=== PATIENT | male | born 1940 | race African-American/Black ===

== ENCOUNTER 2016-09-18 06:35 | Observation (INO) ==
[2016-09-18] MEDS ORDERED: ALBUTEROL NEB SOLN 5 MG/ML 20 ML/BOTTLE CONT NEB STA (06:54)
[2016-09-18] MEDS ORDERED: methylPREDNISolone SOD SUC 125 MG/2 ML VIAL IV STA (06:54)
--- NOTE | 2016-09-18 06:57 | Emergency Department Note ---
IJulio Meredith, am scribing for, and in the presence of, Mariano Kimbrough MD 06: 52. IKaylan James D, MD, personally performed the services described in this documentation, ascribed by Augustina Kim in my presence, and it is both accurate and complete 657 . Arrival - Arrival Chief Complaint: Upper Respiratory Stated Complaint: SOB,asthma ED Nursing Triage Note: C/O Asthma attack. Onset a few days ago. This is his 3rd visit in 3 days- last visit was less than 12 hours ago. Pt states that he was better when he left, but now is worse than before. Pt has hx of asthma and has been taking his medications as prescribed without relief. Pt feels like he needs to be admitted. +audible wheezing heard in triage Mode of Arrival: Ambulatory Limitations: No Limitations Source: Patient, Old Records Reviewed, RN Notes Reviewed Time Seen by Provider: 09/18/16 06:50 - History of Present Illness HPI Narrative: Pt is a 76 y/o black male reporting to the ED with c/o asthma exacerbation which onset a few days ago. This is his 3rd visit in the past 3 days. Pt states he felt better when he was discharged less than 12 hours ago but is now worse. He feels that he needs to be admitted. Pt has a history of HTN, HLD, asthma, bronchitis, COPD, and osteoporosis. He is a former smoker. Onset (ago): day(s) Allergies/Adverse Reactions: Allergies Allergy/AdvReac Type Severity Reaction Status Date / Time lisinopril Allergy Intermediate Swelling Verified 08/16/16 06:40 of Lip/Tongue/Throat Home Medications: Home Medications Medication Instructions Recorded Confirmed Type HYDROcodone/ACETAMIN 5-325 [[place] 1 tablet PO Q6H 04/25/16 09/18/16 History 5-325] Ibuprofen Tab [Motrin Tab] 600 mg PO Q8H 04/25/16 09/18/16 History Losartan/Hydrochlorothiazide 1 each PO DAILY 04/25/16 09/18/16 History [Losartan-Hctz 50-12.5 mg Tab] Omeprazole [Prilosec] 20 mg PO DAILY 04/25/16 09/18/16 History Pravastatin Sodium 20 mg PO DAILY 04/25/16 09/18/16 History Tamsulosin [Flomax] 0.4 mg PO DAILY 04/25/16 09/18/16 History predniSONE TAB [PredniSONE] 5 mg PO DAILY 04/25/16 09/18/16 History Albuterol Neb [Proventil Neb] 2.5 mg RESP TX Q6H PRN 05/09/16 09/18/16 History Albuterol Sulfate [Ventolin HFA] 2 puffs INH Q4H PRN 05/09/16 09/18/16 History Naproxen EC [EC Naprosyn] 500 mg PO BID PRN #20 tablet 07/20/16 09/18/16 Rx Cyclobenzaprine [Flexeril] 10 mg PO TID #30 tablet 08/16/16 09/18/16 Rx Albuterol Inhaler [Proventil 2 puff INH Q4H PRN #1 inhaler 09/16/16 09/18/16 Rx Inhaler] Montelukast Tab [Singulair Tab] 10 mg PO DAILY #30 tablet 09/18/16 09/18/16 Rx predniSONE TAB [PredniSONE] 40 mg PO DAILY 4 Days 09/18/16 09/18/16 Rx Review of System - Review of System 12 point system: reviewed and no additional remarkable complaints except as stated - Review of System Respiratory: Present: as per HPI, respiratory distress, wheezing Medical,Surgical,& Family Hx - Medical History Cardio: History of: Hypertension Endocrine: History of: Dyslipidemia No history of: Diabetes Mellitus (IDDM), Diabetes Mellitus (NIDDM) Respiratory: History of: Asthma, Bronchitis, COPD Gastrointestinal: No history of: Gastrointestinal Bleed, GI Problems Musculoskeletal: History of: Osteoporosis, Musculoskeletal Problems - Surgical History Orthopedic Surgeries: Surgical HX of;: Orthopedic Surgery, Total Hip Replacement (lt.hip replacement), Total Knee Replacement (bilateral knee replacement) - Family History Family History: Reports;: Family Cancer - Social History Smoking Status: Former smoker Frequency of Alcohol Use: None Type of Drug Use: None Exam Physical Examination: GENERAL: This is a well-nourished, well-developed black male in no apparent distress. VITAL SIGNS: Temperature: 97.3, Pulse: 110, Respirations: 26, Blood pressure: 97 /75, O2 Saturation: 96 HEENT: Head is normocephalic and atraumatic. Pupils are equally round and reactive to light. Extraocular movement are intact. Oropharynx is benign with moist mucous membranes. NECK: Neck is soft and supple without tenderness. There are no masses. There is no lymphadenopathy. LUNGS: Expiratory wheeze with prolongation of the expiratory phase. Chest rises symmetrically. There is no chest wall tenderness. CV: Heart is regular rate and rhythm without murmurs, rubs, or gallops. ABDOMEN: Abdomen is soft, non-tender to palpation. There are no abnormal masses palpated. There is no organomegaly. Bowel sounds are present and active. SKIN: Skin is warm and dry. No rash. EXTREMITIES: Patient has full range of motion without tenderness. There is no pedal edema. NEUROLOGIC: Awake, alert, and oriented x4. Cranial nerves II through XII are grossly intact. There are no motorsensory deficits. PSYCHIATRIC: Normal affect. Normal mood. Vital Signs: Vital Signs Temperature 97.5 F L 09/18/16 06:40 Pulse Rate 109 H 09/18/16 06:50 Respiratory Rate 20 09/18/16 06:50 Blood Pressure 175/119 09/18/16 06:50 O2 Sat by Pulse Oximetry 100 09/18/16 06:50 Course - Consultations Consultation #1: Discussed with hospitalist. Patient will be admitted to their service. Time: 06:56 Results - Labs Lab Results: I have reviewed the patients labs Labs: Laboratory Tests 09/18/16 09/18/16 00:25 00:25 Troponin I < 0.015 B-Natriuretic Peptide 13 - Diagnostic Findings Procedure: Chest x-ray: image reviewed by me (Chest x-ray reviewed from last night's visit. Patient has hyperinflation bilaterally without any evidence of infiltrates.) Disposition Clinical Impression: Acute asthma exacerbation, Essential hypertension Case discussed with: patient Disposition: Still a Patient Condition: Stable Additional Instructions: Discontinue ibuprofen and Naprosyn. Time of Disposition: 06:56
[2016-09-18] MEDS ORDERED: methylPREDNISolone SOD SUC 125 MG/2 ML VIAL ONE (06:58)
[2016-09-18] MEDS ORDERED: guaiFENesin/DM ER 600-30 MG TABLET PO PRN (07:11)
[2016-09-18] MEDS ORDERED: DOCUSATE SODIUM 100 MG CAPSULE PO PRN (07:11)
[2016-09-18] MEDS ORDERED: ACETAMINOPHEN 325 MG TABLET PO PRN (07:11)
[2016-09-18] MEDS ORDERED: ONDANSETRON 4 MG/2 ML VIAL IV PRN (07:11)
[2016-09-18] MEDS ORDERED: MORPHINE 2 MG/1 ML SYRINGE IV PRN (07:11)
[2016-09-18] MEDS ORDERED: ALBUTEROL/IPRATROPIUM 3 ML NEB RESP TX PRN (07:11)
--- NOTE | 2016-09-18 07:56 | Hospitalist History & Physical ---
Assessment and Plan - Time spent with patient Time spent with patient: Greater than 30 minutes (due to assessment, plan and documentation.) (1) Acute asthma exacerbation Status: Acute Assessment and plan: admit obs levaquin for possible underlying infectious process- wbc slightly elevated, yellow sputum solumedrol 40 mg IV BID duonebs q6h prn supplemental o2 cxr in am Current Visit: Yes (2) Hyperlipidemia Status: Acute Assessment and plan: continue home meds Current Visit: Yes (3) Acute respiratory distress Status: Acute Assessment and plan: O2/2L hour long neb Current Visit: Yes (4) Essential hypertension Status: Acute Assessment and plan: continue home meds Current Visit: Yes History of Present Illness Chief complaint: sob History of present illness: Mr. Barcenas is a 76 year old male who presented to the ED last night with acute asthma exacerbation. He was treated with steroids and nebs and improved and was discharged home. He states that this morning when he woke up that he felt very tight and short of breath and returned to the ER. He is currently on a 1 hour long nebulized treatment and has received solumedrol. Onset of initial symptoms was Wednesday. His cough is productive of yellow sputum. Last from 0 this morning showed WBC 13.1 Creat 1.6 (appears at baseline). BNP normal. CXR showed " no acute cardiopulmonary process". He has a PMH significant for HTN, HLD, COPD, asthma and osteoportosis. He no longer smokes. He does mention that he was stung on his neck by "something" a few days ago, and that since then he has had pain down his arm. He also mentions that he saw his Dr. Parada and was told it was probably nerve pain. He denies any past surgical history to me. He will be admitted to the floor and treated for acute asthma/copd exacerbtaion with nebs, steroids, levaquin, and supplemental O2. He lives at home with his and typically functions independently. Further plan and addendum to follow by Dr. Katharine Ashley. Home Medications Medication Instructions Recorded Confirmed Type HYDROcodone/ACETAMIN 5-325 [[place] 1 tablet PO Q6H 04/25/16 09/18/16 History 5-325] Ibuprofen Tab [Motrin Tab] 600 mg PO Q8H 04/25/16 09/18/16 History Losartan/Hydrochlorothiazide 1 each PO DAILY 04/25/16 09/18/16 History [Losartan-Hctz 50-12.5 mg Tab] Omeprazole [Prilosec] 20 mg PO DAILY 04/25/16 09/18/16 History Pravastatin Sodium 20 mg PO DAILY 04/25/16 09/18/16 History Tamsulosin [Flomax] 0.4 mg PO DAILY 04/25/16 09/18/16 History predniSONE TAB [PredniSONE] 5 mg PO DAILY 04/25/16 09/18/16 History Albuterol Neb [Proventil Neb] 2.5 mg RESP TX Q6H PRN 05/09/16 09/18/16 History Albuterol Sulfate [Ventolin HFA] 2 puffs INH Q4H PRN 05/09/16 09/18/16 History Naproxen EC [EC Naprosyn] 500 mg PO BID PRN #20 tablet 07/20/16 09/18/16 Rx Cyclobenzaprine [Flexeril] 10 mg PO TID #30 tablet 08/16/16 09/18/16 Rx Albuterol Inhaler [Proventil 2 puff INH Q4H PRN #1 inhaler 09/16/16 09/18/16 Rx Inhaler] Montelukast Tab [Singulair Tab] 10 mg PO DAILY #30 tablet 09/18/16 09/18/16 Rx predniSONE TAB [PredniSONE] 40 mg PO DAILY 4 Days 09/18/16 09/18/16 Rx Allergies Allergy/AdvReac Type Severity Reaction Status Date / Time lisinopril Allergy Intermediate Swelling Verified 08/16/16 06:40 of Lip/Tongue/Throat Medical,Surgical,& Family Hx - Medical History Cardio: History of: Hypertension Endocrine: History of: Dyslipidemia No history of: Diabetes Mellitus (IDDM), Diabetes Mellitus (NIDDM) Respiratory: History of: Asthma, Bronchitis, COPD Gastrointestinal: No history of: Gastrointestinal Bleed, GI Problems Musculoskeletal: History of: Osteoporosis, Musculoskeletal Problems - Surgical History Orthopedic Surgeries: Surgical HX of;: Orthopedic Surgery, Total Hip Replacement (lt.hip replacement), Total Knee Replacement (bilateral knee replacement) - Family History Family History: Reports;: Family Cancer - Social History Smoking Status: Former smoker Frequency of Alcohol Use: None Type of Drug Use: None Marital Status: Lives With:: Spouse Functional capacity: independent ambulation - Constitutional Constitutional: Absent: chills, fatigue, fever(s) - EENT Eyes: Absent: blurry vision, diplopia Ears: Absent: decreased hearing, tinnitus Nose, mouth and throat: Present: neck pain (due to sting a few days ago.). Absent: dysphagia, headache(s) - Cardiovascular Cardiovascular: Present: chest pain at rest, dyspnea, dyspnea on exertion - Respiratory Respiratory: Present: cough, dyspnea, dyspnea on exertion, wheezing, change in phlegm color (yellow sputum.). Absent: hemoptysis - Gastrointestinal Gastrointestinal: Absent: abdominal pain, constipation, diarrhea, melena, nausea , vomiting - Genitourinary Genitourinary: Absent: dysuria, hematuria - Musculoskeletal Musculoskeletal: Absent: back pain, joint swelling - Neurological Neurological: Absent: confusion, dizziness - Psychiatric Psychiatric: Absent: anxiety, confusion, depression - Endocrine Endocrine: Absent: cold intolerance, heat intolerance - Hematologic/Lymphatic Hematologic/Lymphatic: Absent: easy bleeding, easy bruising Exam - Constitutional Vitals: Period Temp Pulse Resp BP Sys/Harman Pulse Ox Last 24 Hr 97.3 F-97.5 F 109-110 20-26 97-175/75-119 96-100 General appearance: normal weight, mild distress - Head Head exam: Present: normal inspection, normocephalic - Eye Eye exam: Present: EOMI. Absent: scleral icterus Pupils: Present: BRIJESH, normal accommodation - ENT ENT exam: Present: normal exam, normal oropharynx - Neck Neck exam: Present: normal inspection. Absent: lymphadenopathy - Respiratory Respiratory exam: Present: accessory muscle use, prolonged expiratory phase, wheezes - Cardiovascular Cardiovascular exam: Present: regular rate and rhythm. Absent: carotid bruit - GI/Abdominal GI/Abdominal exam: Present: normal bowel sounds, soft. Absent: tenderness - Extremities Exam Extremities exam: Present: normal inspection. Absent: edema - Back Exam Back exam: Present: normal inspection. Absent: muscle spasm - Neurological Exam Neurological exam: Present: alert, oriented X3 - Psychiatric Psychiatric exam: Present: normal affect, normal mood - Skin Skin exam: Present: normal color, warm, dry, intact Results - Labs Lab Results: I have reviewed the past 24 hour labs (Labs from 09/17 early AM visit were reviewed.) - Diagnostic Findings Procedure: Chest x-ray: report reviewed by me (no acute cardiopulmonary process noted 09/17/16 )
[2016-09-18] MEDS ORDERED: IBUPROFEN 600 MG TABLET PO SCH (09:02)
[2016-09-18] MEDS ORDERED: NAPROXEN EC 500 MG TABLET PO PRN (09:02)
[2016-09-18] MEDS ORDERED: NON-FORMULARY MEDICATION (Albuterol Inhaler 2 PUFF) INH PRN (09:02)
[2016-09-18] MEDS: PANTOPRAZOLE 40 MG TABLET PO SCH (09:05)
[2016-09-18] MEDS: LEVOFLOXACIN INJ 750 MG in PREMIX 1 EACH IV SCH (09:05)
[2016-09-18] MEDS: ENOXAPARIN 40 MG/0.4 ML SYRINGE SUBCUT SCH (09:05)
[2016-09-18] MEDS: methylPREDNISolone SOD SUC 40 MG/1 ML VIAL IV SCH ×2 (09:06→20:48)
[2016-09-18] MEDS: TAMSULOSIN 0.4 MG CAPSULE PO SCH (09:12)
[2016-09-18] MEDS: LOSARTAN/HCTZ 50-12.5 MG TABLET PO SCH (09:12)
[2016-09-18] MEDS: MONTELUKAST 10 MG TABLET PO SCH (09:12)
[2016-09-18] MEDS: CYCLOBENZAPRINE 10 MG TABLET PO SCH ×3 (09:12→20:48)
[2016-09-18] MEDS ORDERED: ALBUTEROL 2.5 MG/3 ML NEB RESP TX PRN (09:30)
[2016-09-18] MEDS ORDERED: IBUPROFEN 600 MG TABLET PO PRN (14:20)
[2016-09-18] MEDS: PRAVASTATIN 20 MG TABLET PO SCH (20:48)
[2016-09-19 05:35] LABS: Basophils % 0.1 % (0.0-0.8); Hematocrit 35.9 VOL% (42.0-52.0); Hemoglobin 11.3 GM/DL (14.0-18.0); Immature Granulocytes % 1.2 %; Immature Granulocytes Absolute 0.14 #; Lymphocytes # 1.3 10*3/uL (1.4-4.0); Lymphocytes % 10.9 % (21.2-54.2); Mean Corpuscular HGB Conc 31.5 GM/DL (32-36); Mean Corpuscular Hemoglobin 29 PG (27-34); Mean Corpuscular Volume 90.4 FL (87-102); Mean Platelet Volume 8.8 FL (9.6-12.0); Monocytes # 0.6 10*3/uL (0.11-0.8); NRBC # 0.02 10*3/uL; Neutrophils % 82.8 % (38.7-73.9); Platelet Count 346 T/CUMM (130-400); Red Blood Count 3.97 MC/CUMM (3.8-5.5); Red Cell Distribution Width 13.1 % (9.3-17.3); White Blood Count 12.1 T/CUMM (4-12)
[2016-09-19 05:57] LABS: Calcium 8.9 MG/DL (8.5-10.1); Potassium 4.8 MMOL/L (3.5-5.1)
--- NOTE | 2016-09-19 09:17 | Hospitalist Progress Note ---
Assessment and Plan (1) Asthma exacerbation Status: Acute Assessment and plan: Patient is some better today he wants to stay another day we'll continue the current medicines. Overall improving Current Visit: No Hospitalist: Subjective Interval history: Patient without complaints is breathing a little bit better Exam - Constitutional Vitals: Period Temp Pulse Resp BP Sys/Harman Pulse Ox Last 24 Hr 97.6 F-98.2 F 24-109 18-101 103-128/45-64 95-100 Exam: Constitutional: General appearance is normal Eyes: Pupils equal round react to light and accommodation conjunctiva and lids are normal Neck: supple without masses Respiratory: Respiratory effort is normal. Lungs are clear to auscultation. Resonant to percussion. Cardiac: Regular rate and rhythm without murmur rub or gallop. PMI at the midclavicular line by palpation. Carotid arteries 2+ palpation no bruits GI: Bowel sounds normoactive, no tenderness or rebound tenderness, no organomegaly Extremities: no clubbing cyanosis or edema Results - Labs CBC & BMP: 09/19/16 05:02 09/19/16 05:02
[2016-09-19] MEDS: LEVOFLOXACIN INJ 750 MG in PREMIX 1 EACH IV SCH (09:54)
[2016-09-19] MEDS: ENOXAPARIN 40 MG/0.4 ML SYRINGE SUBCUT SCH (09:54)
[2016-09-19] MEDS: CYCLOBENZAPRINE 10 MG TABLET PO SCH ×3 (09:55→20:47)
[2016-09-19] MEDS: LOSARTAN/HCTZ 50-12.5 MG TABLET PO SCH (09:56)
[2016-09-19] MEDS: MONTELUKAST 10 MG TABLET PO SCH (09:56)
[2016-09-19] MEDS: methylPREDNISolone SOD SUC 40 MG/1 ML VIAL IV SCH ×2 (09:56→20:48)
[2016-09-19] MEDS: PANTOPRAZOLE 40 MG TABLET PO SCH (10:14)
[2016-09-19] MEDS: TAMSULOSIN 0.4 MG CAPSULE PO SCH (10:15)
--- NOTE | 2016-09-19 12:42 | XRay Report ---
History: Shortness of breath Date: 09/19/2016 Study: Chest x-ray PA and lateral Comparison exam: September 17, 2016 The cardiac silhouette is not enlarged. There is no mediastinal mass. There is no pulmonary vascular engorgement. The lungs are generally clear. Shallow breath when compared to the previous study. There are some small calcified granulomata bilaterally. There is no layering pleural effusion. Osseous structures are unchanged. Impression: No acute cardiopulmonary process compared to the previous study. No interval worsening PROCEDURE INTERPRETED AT [facility] DEPARTMENT OF RADIOLOGY Final Report Signed by: Dr. Diamond Perry
[2016-09-19] MEDS: PRAVASTATIN 20 MG TABLET PO SCH (20:47)
[2016-09-20 07:51] VITALS: BP 108/59
--- NOTE | 2016-09-20 08:18 | Discharge Summary ---
Hospital Course - Hospital Course Hospital Course: Patient was admitted to the hospital with an asthma exacerbation, currently not have any complaints or problems is breathing markedly better and wants to go home. We will send him home on when necessary inhaler Symbicort tapering doses of steroids and Spiriva. He will follow-up with his regular doctor on or Wednesday. He tells me that Dr. Mahan Diagnosis - Discharge Diagnosis (1) Asthma exacerbation Status: Acute Discharge Plan - Discharge Data Disposition: Disch To Home/Self Care Condition at Discharge: Stable Discharge Diet: advance to your usual diet Activity: resume usual activities as tolerated Hygiene: no restrictions Weight Bearing at Discharge: full weight bearing Driving: no restrictions - Discharge Medications New Budesonide/Formoterol 160-4.5 [Symbicort 160-4.5] 2 puff INH BID #1 inhaler Acetaminophen Tab [Tylenol Tab] 325 mg PO Q4H PRN #0 tablet PRN Reason: fever, headache/body aches methylPREDNISolone DOSEPAK [Medrol Dosepak] 4 mg PO DIRECTED #1 pack Continue Ibuprofen Tab [Motrin Tab] 600 mg PO Q8H Tamsulosin [Flomax] 0.4 mg PO DAILY Pravastatin Sodium 20 mg PO DAILY Omeprazole [Prilosec] 20 mg PO DAILY Losartan/Hydrochlorothiazide [Losartan-Hctz 50-12.5 mg Tab] 1 each PO DAILY HYDROcodone/ACETAMIN 5-325 [[place] 5-325] 1 tablet PO Q6H Albuterol Neb [Proventil Neb] 2.5 mg RESP TX Q6H PRN PRN Reason: Shortness Of Breath/Wheezing Albuterol Inhaler [Proventil Inhaler] 2 puff INH Q4H PRN #1 inhaler PRN Reason: Shortness Of Breath/Wheezing Cyclobenzaprine [Flexeril] 10 mg PO TID #30 tablet Montelukast Tab [Singulair Tab] 10 mg PO DAILY #30 tablet Discontinued predniSONE TAB [PredniSONE] 5 mg PO DAILY predniSONE TAB [PredniSONE] 40 mg PO DAILY 4 Days No Action Naproxen EC [EC Naprosyn] 500 mg PO BID PRN #20 tablet PRN Reason: pain - Follow Up or Referral - Forms/Instructions Exam - Constitutional Vitals: Period Temp Pulse Resp BP Sys/[place] Pulse Ox Last 24 Hr 97.6 F-98.0 F 80-94 18-89 102-117/56-69 95-100 Exam: Constitutional: General appearance is normal Eyes: Pupils equal round react to light and accommodation conjunctiva and lids are normal Neck: supple without masses Respiratory: Respiratory effort is normal. Lungs are clear to auscultation. Resonant to percussion. Cardiac: Regular rate and rhythm without murmur rub or gallop. PMI at the midclavicular line by palpation. Carotid arteries 2+ palpation no bruits GI: Bowel sounds normoactive, no tenderness or rebound tenderness, no organomegaly Extremities: no clubbing cyanosis or edema Discharge Results Labs on day of discharge: Labs from last 24 hours 09/19/16 20:38 POC Glucose 129 H DS: Provider Date of admission: 09/18/16 07:11 Primary care physician: Medardo Parada MD Attending physician on admission: Katharine Ahsley MD Consults: 09/18/16 08:18 Consult to Pharmacy [CONS] Routine Reason for Pharmacy Consult: Adjust Meds Renal Funct 09/18/16 08:50 Consult to Pastoral Services [CONS] Routine Comment: Pastoral Screen: Request Hub Cutter Visit Pastoral Screen Source of Request: Patient Discharging clinician: Eugene Colin MD
[2016-09-20] MEDS: ENOXAPARIN 40 MG/0.4 ML SYRINGE SUBCUT SCH (08:28)
[2016-09-20] MEDS: LOSARTAN/HCTZ 50-12.5 MG TABLET PO SCH (08:29)
[2016-09-20] MEDS: PANTOPRAZOLE 40 MG TABLET PO SCH (08:29)
[2016-09-20] MEDS: MONTELUKAST 10 MG TABLET PO SCH (08:30)
[2016-09-20] MEDS: TAMSULOSIN 0.4 MG CAPSULE PO SCH (08:30)
[2016-09-20] MEDS: CYCLOBENZAPRINE 10 MG TABLET PO SCH (08:30)
[2016-09-20] MEDS: methylPREDNISolone SOD SUC 40 MG/1 ML VIAL IV SCH (08:30)
[2016-09-20] MEDS: LEVOFLOXACIN INJ 750 MG in PREMIX 1 EACH IV SCH (08:44)
== END 2016-09-20 11:50 | disposition home or self-care (01) ==
LOC: N.EDINP 06:35 → N.ED 06:35 → N.2E 08:04
PROVIDERS: ADMIT Internal Medicine; ATTEND Internal Medicine